=== PATIENT | male | born 1970 | race Caucasian/White ===

== ENCOUNTER 2021-02-04 01:09 | Inpatient (IN) | payer BC ==
[~2021-02-04] VITALS: Ht 177.8 cm; Wt 111.2 kg
--- NOTE | 2021-02-04 01:16 | NUR ---
DR CHAVEZ AT BEDSIDE, VERBAL ORDER TO CONTINUE HEPARIN GTT AT 1000 UNITS.
[2021-02-04] MEDS ORDERED: ONDANSETRON 2MG/ML, 2ML ONE (01:21)
[2021-02-04] MEDS ORDERED: MORPHINE SULFATE 4 MG/ML, 1ML ONE (01:21)
[2021-02-04] MEDS ORDERED: [UNRECOGNIZED DRUG - REMARK] MC SCH (01:30)
[2021-02-04] MEDS ORDERED: ONDANSETRON 2MG/ML, 2ML IVPush ONE (01:30)
[2021-02-04] MEDS ORDERED: MORPHINE SULFATE 4 MG/ML, 1ML IVPush PRN (01:30)
[2021-02-04] MEDS ORDERED: HEPARIN 25,000 UNITS/250ML PMX 250 ML ONE (01:38)
[2021-02-04 01:56] LABS: MICROSCOPIC AUTO
--- NOTE | 2021-02-04 01:57 | NUR ---
PER DR CHAVEZ HOLD HEPARIN BOLUS. PT RECEIVED HEPARIN BOLUS AT PREVIOUS FACILITY
[2021-02-04] MEDS ORDERED: HEPARIN 25,000 UNITS/250ML PMX 250 ML IV PRN (02:00)
[2021-02-04] MEDS ORDERED: HEPARIN 5,000 UNITS/ML, 1ML IV PRN (02:00)
[2021-02-04] MEDS ORDERED: HEPARIN 5,000 UNITS/ML, 1ML IV ONE (02:00)
[2021-02-04] MEDS ORDERED: LABETALOL 5MG/ML, 20ML IVPush PRN (03:00)
[2021-02-04] MEDS ORDERED: MELATONIN 5 MG TABLET PO PRN (03:00)
[2021-02-04] MEDS ORDERED: ONDANSETRON 2MG/ML, 2ML IVPush PRN (03:00)
[2021-02-04] MEDS ORDERED: POLYETHYLENE GLYCOL 17 GM PACKET PO PRN (03:00)
[2021-02-04] MEDS ORDERED: OXYcodone IR 5MG TABLET PO PRN (03:00)
--- NOTE | 2021-02-04 03:15 | NUR ---
REPORT BEVERLEY RN
[2021-02-04] MEDS ORDERED: DEXTROSE 50%, 50ML SYRINGE IVPush PRN (03:30)
[2021-02-04] MEDS ORDERED: BACLOFEN 10 MG TABLET PO PRN (03:30)
[2021-02-04] MEDS ORDERED: GLUCAGON 1 MG IM PRN (03:30)
[2021-02-04] MEDS ORDERED: DEXTROSE 4 GM TAB.CHEW PO PRN (03:30)
--- NOTE | 2021-02-04 03:54 | NUR ---
REPORT CALLED TO FLOOR RN, AND PT TAKEN TO FLOOR VIA JENNIE, NO ACUTE DISTRESS.
[2021-02-04] MEDS: ACETAMINOPHEN 500 MG TABLET PO SCH ×5 (04:00→21:29)
[2021-02-04 04:10] VITALS: BP 107/80
[2021-02-04] MEDS ORDERED: METF10007 PO (04:46)
[2021-02-04] MEDS ORDERED: EMPA10TA PO (04:46)
[2021-02-04] MEDS: morphine SULFATE 10 MG/ML, 1ML IVPush PRN ×3 (05:30→16:50)
[2021-02-04 07:08] LABS: BASOPHILS % (AUTO) 1 % (0-1); EOSINOPHILS % (AUTO) 1 % (1-7); LYMPHOCYTES % (AUTO) 17 % (22-44); MEAN CORPUSCULAR HEMOGLOBIN 30.9 pg (27.5-34.5); MEAN CORPUSCULAR HGB CONC 33.7 g/dL (33.2-36.2); MEAN PLATELET VOLUME 7.2 fL (7.4-10.4); MONOCYTES % (AUTO) 9 % (2-9); NEUTROPHILS % (AUTO) 73 % (42-75); PLATELET COUNT 275 x10^3/uL (130-400); RED BLOOD COUNT 4.89 x10^6/uL (4.38-5.82); RED CELL DISTRIBUTION WIDTH 13.1 % (9.4-14.8)
[2021-02-04 07:13] LABS: ANION GAP 9 mmol/L (5-15); CHLORIDE 103 mmol/L (98-107); CREATININE 1.29 mg/dL (0.7-1.3)
[2021-02-04 08:25] LABS: BASOPHILS % (AUTO) 1 % (0-1); EOSINOPHILS % (AUTO) 1 % (1-7); LYMPHOCYTES % (AUTO) 21 % (22-44); MEAN CORPUSCULAR HEMOGLOBIN 31.2 pg (27.5-34.5); MEAN CORPUSCULAR HGB CONC 33.9 g/dL (33.2-36.2); MEAN PLATELET VOLUME 7.3 fL (7.4-10.4); MONOCYTES % (AUTO) 10 % (2-9); NEUTROPHILS % (AUTO) 67 % (42-75); PLATELET COUNT 256 x10^3/uL (130-400); RED BLOOD COUNT 5.06 x10^6/uL (4.38-5.82)
[2021-02-04 08:36] LABS: INTERNATIONAL NORMALIZED RATIO 1.03 (0.93-1.1)
[2021-02-04 08:37] LABS: ALANINE AMINOTRANSFERASE 64 U/L (12-78); ALBUMIN 3.3 g/dL (3.4-5.0); ANION GAP 11 mmol/L (5-15); CALCIUM 9.1 mg/dL (8.5-10.1); CHLORIDE 106 mmol/L (98-107); CREATININE 1.15 mg/dL (0.7-1.3)
[2021-02-04 08:40] LABS: ALKALINE PHOSPHATASE 105 U/L (45-117); BILIRUBIN,TOTAL 0.4 mg/dL (0.2-1.0); TOTAL PROTEIN 7.2 g/dL (6.4-8.2)
[2021-02-04 09:27] VITALS: BP 97/65
[2021-02-04 10:29] VITALS: BP 123/74
[2021-02-04] MEDS: INSULIN LISPRO 100 UNITS/ML, PEN SQ-INSULIN SCH ×3 (10:34→21:00)
[2021-02-04] MEDS: SODIUM CHLORIDE FLUSH 10ML SYR IVF SCH ×2 (10:38→21:00)
[2021-02-04 12:50] VITALS: BP 112/75
[2021-02-04 21:34] VITALS: BP 107/71
[2021-02-05 02:13] VITALS: BP 127/76
[2021-02-05] MEDS: ACETAMINOPHEN 500 MG TABLET PO SCH ×6 (02:42→22:39)
[2021-02-05 05:48] LABS: BASOPHILS % (AUTO) 1 % (0-1); EOSINOPHILS % (AUTO) 0 % (1-7); LYMPHOCYTES % (AUTO) 9 % (22-44); MEAN CORPUSCULAR HEMOGLOBIN 30.7 pg (27.5-34.5); MEAN CORPUSCULAR HGB CONC 33.2 g/dL (33.2-36.2); MEAN PLATELET VOLUME 7.8 fL (7.4-10.4); MONOCYTES % (AUTO) 10 % (2-9); NEUTROPHILS % (AUTO) 80 % (42-75); PLATELET COUNT 268 x10^3/uL (130-400); RED BLOOD COUNT 4.97 x10^6/uL (4.38-5.82); RED CELL DISTRIBUTION WIDTH 12.9 % (9.4-14.8)
[2021-02-05 05:57] LABS: CHLORIDE 101 mmol/L (98-107)
[2021-02-05 06:04] LABS: ALANINE AMINOTRANSFERASE 102 U/L (12-78); ALBUMIN 3.1 g/dL (3.4-5.0); ALKALINE PHOSPHATASE 108 U/L (45-117); ANION GAP 9 mmol/L (5-15); BILIRUBIN,TOTAL 0.6 mg/dL (0.2-1.0); CALCIUM 8.8 mg/dL (8.5-10.1); TOTAL PROTEIN 7.4 g/dL (6.4-8.2)
[2021-02-05] MEDS: INSULIN LISPRO 100 UNITS/ML, PEN SQ-INSULIN SCH ×4 (07:00→21:00)
[2021-02-05 08:00] VITALS: BP 124/68
[2021-02-05] MEDS: SODIUM CHLORIDE FLUSH 10ML SYR IVF SCH ×2 (09:00→21:05)
[2021-02-05 12:25] VITALS: BP 111/70
[2021-02-05] MEDS: CEFTRIAXONE 2 GM in DEXTROSE 5% 50 ML IVPB SCH (16:14)
[2021-02-05] MEDS ORDERED: OMNIPAQUE 350 MG/ML, 100ML BOTTLE ONE (19:25)
[2021-02-05 19:57] VITALS: BP 131/84
[2021-02-06 02:13] VITALS: BP 107/72
[2021-02-06] MEDS: ACETAMINOPHEN 500 MG TABLET PO SCH ×5 (02:46→20:06)
[2021-02-06 05:34] LABS: HCT (SEDRATE) 46.3 % (39.2-51.8)
[2021-02-06 05:35] LABS: BASOPHILS % (AUTO) 1 % (0-1); EOSINOPHILS % (AUTO) 0 % (1-7); LYMPHOCYTES % (AUTO) 7 % (22-44); MEAN CORPUSCULAR HEMOGLOBIN 30.9 pg (27.5-34.5); MEAN CORPUSCULAR HGB CONC 33.7 g/dL (33.2-36.2); MEAN PLATELET VOLUME 7.4 fL (7.4-10.4); MONOCYTES % (AUTO) 10 % (2-9); NEUTROPHILS % (AUTO) 82 % (42-75); PLATELET COUNT 302 x10^3/uL (130-400); RED BLOOD COUNT 5.04 x10^6/uL (4.38-5.82)
[2021-02-06 05:44] LABS: ALBUMIN 2.9 g/dL (3.4-5.0); CALCIUM 8.9 mg/dL (8.5-10.1); CHLORIDE 100 mmol/L (98-107)
[2021-02-06 05:57] LABS: ALANINE AMINOTRANSFERASE 72 U/L (12-78); ALKALINE PHOSPHATASE 101 U/L (45-117); ANION GAP 11 mmol/L (5-15); BILIRUBIN,TOTAL 0.6 mg/dL (0.2-1.0); TOTAL PROTEIN 7.2 g/dL (6.4-8.2)
[2021-02-06 06:12] LABS: C-REACTIVE PROTEIN, QUANT > 19.00 mg/dL (0.02-0.49)
[2021-02-06 07:30] VITALS: BP 129/84
[2021-02-06] MEDS: SODIUM CHLORIDE FLUSH 10ML SYR IVF SCH ×2 (08:21→20:06)
[2021-02-06] MEDS: INSULIN LISPRO 100 UNITS/ML, PEN SQ-INSULIN SCH ×4 (08:21→20:12)
[2021-02-06] MEDS: TAMSULOSIN 0.4 MG CAP.ER.24H PO SCH (08:22)
[2021-02-06] MEDS ORDERED: HEPARIN 25,000 UNITS/250ML PMX 250 ML IV PRN (10:00)
[2021-02-06] MEDS ORDERED: HEPARIN 5,000 UNITS/ML, 1ML IV ONE (10:00)
[2021-02-06 13:06] VITALS: BP 122/80
[2021-02-06] MEDS: CEFTRIAXONE 2 GM in DEXTROSE 5% 50 ML IVPB SCH (15:47)
[2021-02-06 19:11] VITALS: BP 126/87
[2021-02-06] MEDS: HEPARIN 5,000 UNITS/ML, 1ML IV PRN (21:21)
[2021-02-07] MEDS: ACETAMINOPHEN 500 MG TABLET PO SCH ×3 (00:24→08:03)
[2021-02-07 01:05] VITALS: BP 137/88
[2021-02-07 03:15] LABS: BASOPHILS % (AUTO) 1 % (0-1); EOSINOPHILS % (AUTO) 1 % (1-7); LYMPHOCYTES % (AUTO) 8 % (22-44); MEAN CORPUSCULAR HEMOGLOBIN 30.9 pg (27.5-34.5); MEAN CORPUSCULAR HGB CONC 33.7 g/dL (33.2-36.2); MEAN PLATELET VOLUME 7.2 fL (7.4-10.4); MONOCYTES % (AUTO) 9 % (2-9); NEUTROPHILS % (AUTO) 81 % (42-75); PLATELET COUNT 307 x10^3/uL (130-400); RED BLOOD COUNT 5.04 x10^6/uL (4.38-5.82)
[2021-02-07 03:23] LABS: ALANINE AMINOTRANSFERASE 57 U/L (12-78); ALBUMIN 2.6 g/dL (3.4-5.0); ANION GAP 11 mmol/L (5-15); CALCIUM 8.7 mg/dL (8.5-10.1); CHLORIDE 100 mmol/L (98-107); CREATININE 1.17 mg/dL (0.7-1.3)
[2021-02-07 03:26] LABS: ALKALINE PHOSPHATASE 104 U/L (45-117); BILIRUBIN,TOTAL 0.5 mg/dL (0.2-1.0); TOTAL PROTEIN 7.4 g/dL (6.4-8.2)
[2021-02-07] MEDS: HEPARIN 5,000 UNITS/ML, 1ML IV PRN (04:54)
[2021-02-07 07:01] VITALS: BP 128/82
[2021-02-07] MEDS: TAMSULOSIN 0.4 MG CAP.ER.24H PO SCH (08:03)
[2021-02-07] MEDS: INSULIN LISPRO 100 UNITS/ML, PEN SQ-INSULIN SCH ×2 (08:05→11:49)
[2021-02-07] MEDS: SODIUM CHLORIDE FLUSH 10ML SYR IVF SCH (08:06)
[2021-02-07] MEDS ORDERED: ACETAMINOPHEN 500 MG TABLET PO PRN (09:30)
[2021-02-07] MEDS ORDERED: TAMS-11 PO (11:23)
[2021-02-07] MEDS ORDERED: APIX5TAB PO (11:23)
[2021-02-07] MEDS ORDERED: INSU100I11 SQ-INSULIN (11:23)
[2021-02-07] MEDS ORDERED: AMOX1TAB64 PO (13:14)
== END 2021-02-07 13:30 | disposition home or self-care (01) | DRG 699 ==
LOC: ED 01:30 → OBSVTOIN 02:07 → INTOOBSV 02:07 → EDIP 02:07 → 3N 03:56 → OBSVTOIN 07:40 → 5SO 08:46
PROVIDERS: ADMIT Student in an Organized Health Care Education/Training Program; ATTEND Internal Medicine
DX: N28.0 Ischemia and infarction of kidney (principal); E87.1 Hypo-osmolality and hyponatremia; S06.6X0A Traumatic subarachnoid hemorrhage without loss of consciousness, initial encounter; E66.01 Morbid (severe) obesity due to excess calories; E11.65 Type 2 diabetes mellitus with hyperglycemia; E78.5 Hyperlipidemia, unspecified; F17.210 Nicotine dependence, cigarettes, uncomplicated; F19.10 Other psychoactive substance abuse, uncomplicated; W18.39XA Other fall on same level, initial encounter; I10 Essential (primary) hypertension; Z68.35 Body mass index [BMI] 35.0-35.9, adult; Z79.01 Long term (current) use of anticoagulants; Y93.89 Activity, other specified; Y99.8 Other external cause status; Y92.238 Other place in hospital as the place of occurrence of the external cause
CPT/HCPCS: 36415; 70450; 74150; 74175; 80048; 80053; 81001; 82962; 83036; 83605; 85014; 85018; 85025; 85520; 85610; 85651; 85730; 86140; 87040; 93005; 93975; 96374; 96375; G0378; J0696; J1644; J2405; Q9967; J1815; J2270